=== PATIENT | female | born 1980 | race Two or more races ===

== ENCOUNTER 2018-07-04 15:31 | Emergency (ER) | payer OTHER ==
[~2018-07-04] VITALS: Ht 170.2 cm; Wt 68.0 kg
== END 2018-07-04 19:16 | disposition home or self-care (01) ==
LOC: ER 15:31
DX: S20.211A Contusion of right front wall of thorax, initial encounter (principal); W18.39XA Other fall on same level, initial encounter; Y93.89 Activity, other specified; Y92.814 Boat as the place of occurrence of the external cause; Y99.8 Other external cause status

== ENCOUNTER 2018-12-13 11:48 | Emergency (ER) | payer OTHER ==
[~2018-12-13] VITALS: Ht 170.2 cm; Wt 68.0 kg
== END 2018-12-13 23:27 | disposition home or self-care (01) ==
LOC: ER 11:48
DX: K52.9 Noninfective gastroenteritis and colitis, unspecified (principal); N39.0 Urinary tract infection, site not specified; R10.31 Right lower quadrant pain